=== PATIENT | male | born 1965 | race Caucasian/White ===

== ENCOUNTER 2018-09-19 15:13 | Emergency (ER) | payer OTHER ==
[~2018-09-19] VITALS: Ht 172.7 cm; Wt 81.7 kg
[2018-09-19] MEDS ORDERED: DIVA500ER PO (16:05)
[2018-09-19] MEDS ORDERED: LORA2 PO (16:06)
[2018-09-19] MEDS ORDERED: LITH300C PO (16:06)
[2018-09-19] MEDS ORDERED: Zyprexa10 MG PO (16:07)
[2018-09-19] MEDS ORDERED: TOUJEO SOL300 UNIT/1 SC (16:08)
[2018-09-19] MEDS ORDERED: SITA100T2 PO (16:08)
[2018-09-19] MEDS ORDERED: INVOKANA100 MG PO (16:09)
[2018-09-19] MEDS ORDERED: GLIM4 PO (16:09)
[2018-09-19] MEDS ORDERED: LISI5 PO (16:10)
[2018-09-19] MEDS ORDERED: METF500C PO (16:10)
[2018-09-19] MEDS ORDERED: SIMV10 PO (16:11)
[2018-09-19 16:12] LABS: BASOPHILS ABSOLUTE AUTO 0.02 K/mm3 (0.00-0.23); BASOPHILS PERCENT AUTO 0 % (0-2); EOSINOPHILS ABSOLUTE AUTO 0.01 K/mm3 (0.00-0.68); EOSINOPHILS PERCENT AUTO 0 % (0-6); Hematocrit 49.3 % (37.0-53.0); Hemoglobin 16.6 g/dL (13.5-17.5); IMMATURE GRAN ABSOLUTE AUTO 0.02 K/mm3 (0.00-0.10); IMMATURE GRAN PERCENT AUTO 0 % (0-1); LYMPHOCYTES PERCENT AUTO 22 % (21-46); MONOCYTES ABSOLUTE AUTO 0.42 K/mm3 (0.16-1.47); MONOCYTES PERCENT AUTO 5 % (4-13); Mean Corpuscular HGB 30.3 pg (26.0-34.0); Mean Corpuscular HGB Conc 33.7 g/dL (31.5-36.5); Mean Corpuscular Volume 90 fL (80-100); Mean Platelet Volume 9.2 fL (9.1-12.4); NEUTROPHILS ABSOLUTE AUTO 6.12 K/mm3 (1.96-9.15); NEUTROPHILS PERCENT AUTO 72 % (41-73); Platelet Count 196 K/mm3 (150-400); RDW Coefficient Variation 13.3 % (11.7-14.2); RDW Standard Deviation 43.7 fL (35.1-46.3); Red Blood Cell Count 5.48 M/mm3 (4.30-5.90); White Blood Cell Count 8.49 K/mm3 (4.00-11.30)
[2018-09-19] MEDS ORDERED: AMLO10 PO (16:12)
[2018-09-19] MEDS ORDERED: CARBI50 PO (16:17)
[2018-09-19 16:29] LABS: Alanine Aminotransfer (ALT/SGP 35 U/L (12-78); Albumin, Blood 4.4 g/dL (3.4-5.0); Albumin/Globulin Ratio 1.3 (0.8-1.8); Alk Phos 49 U/L (50-136); Anion Gap 9 mmol/L (6-16); Aspartate Aminotrans (AST/SGOT 23 U/L (12-37); Bilirubin, Total 0.7 mg/dL (0.1-1.0); Blood Urea Nitrogen 16 mg/dL (8-24); Bun/Creatinine Ratio 16.5 (12.0-20.0); CO2, Blood 26 mmol/L (21-32); Calcium, Blood 9.4 mg/dL (8.5-10.1); Chloride, Blood 104 mmol/L (98-108); Creatinine, Blood 0.97 mg/dL (0.60-1.20); Globulin, Blood 3.3 g/dL (2.2-4.0); Glomerular Filtration Rate >60 (60-); Glucose, Blood 105 mg/dL (70-99); Magnesium, Blood 2.2 mg/dL (1.6-2.4); Potassium, Blood 4.5 mmol/L (3.5-5.5); Sodium, Blood 139 mmol/L (136-145); Total Protein, Blood 7.7 g/dL (6.4-8.2); Valproic Acid 51.2 ug/mL (50.0-100.0)
[2018-09-19 16:34] LABS: Lithium 0.62 mmol/L (0.60-1.20)
== END 2018-09-19 18:09 | disposition home or self-care (01) ==
LOC: ER 15:13
PROVIDERS: Emergency Medicine
DX: E86.0 Dehydration (principal); E87.8 Other disorders of electrolyte and fluid balance, not elsewhere classified; F31.9 Bipolar disorder, unspecified; E11.9 Type 2 diabetes mellitus without complications; F17.220 Nicotine dependence, chewing tobacco, uncomplicated; Z79.899 Other long term (current) drug therapy; Z79.4 Long term (current) use of insulin
CPT/HCPCS: 80053; 80164; 80178; 83735; 85025; 93005; 93010; 99284-25